=== PATIENT | male | born 1975 | race Caucasian/White ===

== ENCOUNTER 2025-02-07 10:29 | Emergency (ER) | payer OTHER, SELFPAY ==
[2025-02-07 10:39] VITALS: BP 160/86; PULSE 66; RESP 17; TEMP 36.5; O2SAT 98; BMI 25.7
--- NOTE | 2025-02-07 10:50 | XR_ITS ---
PROCEDURE INFORMATION: Exam: XR Left Wrist Exam date and time: 02/07/2025 10:58 AM Age: 49 years old Clinical indication: Swelling; Wrist; Left; Additional info: Non traumatic swelling TECHNIQUE: Imaging protocol: Radiologic exam of the left wrist. Views: 3 or more views. COMPARISON: No relevant prior studies available. FINDINGS: Bones/joints: No acute fracture or malalignment. Moderate to severe radiocarpal and intercarpal scattered degenerative changes. Soft tissues: Mild wrist soft tissue swelling. Scapholunate interval is mildly widened (5 mm), suggestive of ligamentous pathology. Triangular fibrocartilage injury may also be present given ulnotriquetrial joint space narrowing and osteophyte formation on lateral view. Recommend MRI for complete evaluation of these findings. IMPRESSION: 1. No acute fracture or malalignment. Moderate to severe radiocarpal and intercarpal scattered degenerative changes. 2. Mild wrist soft tissue swelling. Scapholunate interval is mildly widened (5 mm), suggestive of ligamentous pathology. Triangular fibrocartilage injury may also be present given ulnotriquetrial joint space narrowing and osteophyte formation on lateral view. Recommend MRI for complete evaluation of these findings.
--- NOTE | 2025-02-07 11:00 | [facility].EDGENADL ---
Discharge Plan Disposition Patient Disposition: Home, Self-Care Prescriptions Prescriptions: New prednisone 50 mg tablet 50 mg PO DAILY 5 Days Qty: 5 0RF Rx Instructions: Please begin 1 day after ED visit No Action acetaminophen 650 mg Tablet 1,300 mg PO BIDP PRN (Reason: chronic pain) Referrals Follow up/Referrals: Balwinder Catherine DO [Staff Physician] - See instructions Provider,Referral, [Primary Care Provider] - See instructions Activity Restrictions/Add. Instructions Additional Instructions/Restrictions: You have severe radiocarpal joint arthritis please follow-up with our orthopedic surgeon to discuss downstream management options. 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 The location of the discomfort is at the distal aspect of his radius at the junction of the carpal bones and the radius itself. 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 States that at end of a long workday he normally has some swelling in this region but that this is worse than normal. No significant redness warmth fever or feeling sick from historical standpoint. Related Data Home Medications ?Medication ?Instructions ?Recorded ?Confirmed acetaminophen 650 mg tablet 1,300 mg PO BIDP PRN chronic pain 02/07/25 02/07/25 Previous Rx's ?Medication ?Instructions ?Recorded prednisone 50 mg tablet 50 mg PO DAILY 5 days #5 tabs 02/07/25 Allergies Allergy/AdvReac Type Severity Reaction Status Date / Time NO KNOWN ALLERGIES Allergy Uncoded 11/06/17 14:27 [facility] Disclaimer: The information contained in this section may have been updated after the patient was seen, as this information can be updated by other users. Medical History (Updated 02/07/25 @ 11:25 by Kiana Thrasher MD) Arthritis Social History Smoking Status: Light tobacco smoker alcohol intake: never current occupational status: other Travel in the last 8 weeks: None ROS Obtained: Yes All systems reviewed & no additional complaints except as documented Physical Exam General General appearance: alert Respiratory Respiratory exam: Present normal lung sounds bilaterally Cardiovascular Cardiovascular exam: Present regular rate Extremities Exam Extremities exam: Present other (Swelling and tenderness over the distal aspect of the radius at the junction of the radial carpal joint no significant erythema warmth or fluctuance) Neurological Exam Neurological exam: Present alert Medical Decision Making Medical Records Screening: Per USPSTF and CDC recommendations, given the prevalence of disease in our region, it is our hospital?s policy to screen for HIV and viral Hepatitis for all patients aged 18 and over and those with ongoing risk factors. Krishan Inquiry Pt receiving controlled substance: No Vital Signs: 02/07/25 10:39 Temperature 97.7 F Temperature Source Oral Pulse Rate [Right] 66 Respiratory Rate 17 Blood Pressure [Left Arm] 160/86 H Blood Pressure Mean [Left Arm] 110 Blood Pressure Source [Left Arm] Automatic Cuff 02 Sat by Pulse Oximetry 98 Oxygen Delivery Method Room Air Orders (Tests/Meds): ORDERS Category Date Time Status POCUS Point of Care (ER Only) Stat Exams 02/07/25 10:50 Ordered Wrist XR left minimum 3 views [XR wrist LT min 3V] Stat Exams 02/07/25 10:50 Completed Medical Decision Narrative: Patient with above history and physical most likely chronic inflammation secondary to osteoarthritis. There is no acute redness warmth swelling etc. to suggest that this is a septic joint. Other types of arthritis are certainly on the differential but not emergent in the setting including gout and pseudogout etc. No indication for an arthrocentesis. I will have a risk-benefit discussion with him regarding steroids and will likely prescribe steroids. Ultrasound demonstrated a small area of fluid collection at the joint of interest we will obtain a plain film to make sure there is no obvious bony abnormality as well. Will reassess shortly. X-ray performed which shows severe radiocarpal joint arthritis. Will have him follow-up with our orthopedic surgeon. Steroids have been prescribed. Patient has been informed of this was discharged in stable condition. Procedures Miscellaneous Procedure Procedure Performed: Limited soft tissue ultrasound Indication: Pain and swelling Identified structures: Location: Left wrist Findings: Small area of fluid localized to the radiocarpal joint but no large fluid collection or surrounding cobblestoning/cellulitis noted Impression: Increased fluid in comparison with contralateral radiocarpal joint on the left consistent with small effusion likely reactive/secondary to chronic inflammation Images were to permanent archive The study was technically adequate Soft Tissue CPT Codes: CPT Neck: 68785-82 CPT Upper extremity: 86971-53 CPT Axilla: 51005-48 CPT Chest wall: 98921-70 CPT Breast: 95896-62-LW/LT (complete), 07251-96-MF/LT (limited), CPT Upper Back: 89259-19 CPT Lower Back: 56618-24 CPT Abdominal Wall: 74406-52 CPT Pelvic Wall: 60351-24 CPT Lower Extremity: 15864-90 CPT Other Soft Tissue: 31545-83 This study was performed by me, and I personally interpreted all images/videos. Based on my clinical judgement, these images were adequate and did not necessitate further imaging. Critical Care Critical Care Time Critical Care Time: No
[2025-02-07] MEDS: predniSONE 20MG TAB 60 MG PO (11:36)
[2025-02-07 11:41] VITALS: BP 138/66; PULSE 60; RESP 16; TEMP 36.5; O2SAT 98
== END 2025-02-07 11:42 | disposition home or self-care (01) ==
PROVIDERS: Emergency Provider Student in an Organized Health Care Education/Training Program
DX: M19.032 Primary osteoarthritis, left wrist (principal); M25.532 Pain in left wrist; M25.432 Effusion, left wrist
CPT/HCPCS: 76882; 73110; 99284